=== PATIENT | female | born 1950 | race Caucasian/White ===

== ENCOUNTER → 2016-06-10 | Day surgery (SDC) | payer MEDICARE ==
[~2016-06-10] MED LIST: ACTOS PO; ADVAIR 5001 DISK W/2 IH; AMARYL2 MG PO; AMOXICILLIN500 M1 PO; BENTYL10 MG PO; BIOTIN10000 MCG PO; CINNAMON PO; CLARITIN-D1 TAB 12 H PO; DUONEB; FLONASE16 GM; GLYBURIDE PO; HUMULIN N100 UNIT/1 SUBQ; IRON325 ( 65 ) PO; KLOR-CON PO; LASIX PO; LEVAQUIN PO; LEVOXYL200 MC1 PO; LISINOPRIL2.5 MG PO; METFORMIN HCL1000 M1 PO; NEO/POLYMYXIN/H10 M1 AU; OMEPRAZOLE40 M1 PO; PERCOCET PO; PREDNISONE PO; PRILOSEC20 M1 PO; PROMETHAZINE W118 M1 PO; PROVENTIL INH0.5 ML INH; RED YEAST RICE E1 GM PO; REQUIP1 MG PO; ROBAXIN 750750 MG PO; ROPINIROLE HCL1 MG PO; SINGULAIR PO; TIZANIDINE HCL4 M1 PO; VICTOZA0.6 MG/0.1 SQ; VOLTAREN75 MG PO; XANAX0.5 MG PO
--- NOTE | ~2016-06-10 | OR ---
Unit #: [id number] #: [id number] Patient: TED BINGHAM [id number] [address] [address] [id number] O MR#: [id number] NAME: TED BINGHAM. ROOM: Date of Procedure: 06/10/2016 Admission Date: 06/10/2016 Surgeon: Elton Franco M.D. : 1950 Attending Physician: Elton Franco M.D. Primary Care Physician: Generic Doctor Not In System OPERATIVE REPORT PREOPERATIVE DIAGNOSES Spondylolisthesis, degenerative disk disease, back pain, radiculopathy. POSTOPERATIVE DIAGNOSES Spondylolisthesis degenerative disk disease, back pain, radiculopathy. PROCEDURE PERFORMED Lumbar epidural steroid injection with intravenous sedation and fluoroscopic guidance for needle localization. INDICATIONS FOR PROCEDURE The patient is a 65-year-old female, who had a return of back and bilateral lower extremity pains due to nonsurgical pathology in her lumbar spine. She has done well in the past with epidural steroids. Last injection was completed about a year ago. She had resurgence of those symptoms. Plan is to repeat an injection at this point based on history, pathology, symptomatology, and treatment options. DESCRIPTION OF PROCEDURE The patient was placed in a seated position. Standard monitors were applied. 2 mg of Versed were given for sedation and anxiolysis, which were adequate. Vital signs remained stable. Sterile prep and drape then of lumbar area was performed. The skin at the L4 level was localized with 1% lidocaine. An 18-gauge Hustead needle was then advanced via loss of resistance technique and fluoroscopic guidance in toward the epidural space. After confirming proper positioning with fluoroscopy and radiographic contrast, 80 mg of Depo-Medrol and 4 mL of 0.125% bupivacaine were deposited. The patient tolerated the procedure otherwise well and was discharged to the recovery room in stable condition. Dictated by... Vicky Kent/sp TD: 06/10/2016 23:07 JOB #: [id number] Unit #: [id number] #: [id number] Patient: TED BINGHAM OPERATIVE REPORT Page 1 of 1 X Elton Franco MD X PROCEDURE OPERATIVE NOTE
== END | disposition home or self-care (01) ==
LOC: CCSC 09:19
DX: M51.16 Intervertebral disc disorders with radiculopathy, lumbar region (principal); M43.16 Spondylolisthesis, lumbar region; E11.9 Type 2 diabetes mellitus without complications; J44.9 Chronic obstructive pulmonary disease, unspecified; K21.9 Gastro-esophageal reflux disease without esophagitis; E66.01 Morbid (severe) obesity due to excess calories; M19.90 Unspecified osteoarthritis, unspecified site; F41.9 Anxiety disorder, unspecified
CPT/HCPCS: J1040; J2250

== ENCOUNTER 2016-06-15 22:37 | Emergency (ER) | payer MEDICARE ==
--- NOTE | ~2016-06-15 | CR229 ---
[facility]. [facility] A Service of [facility] & [facility] RADIOLOGY TEXT RESULTS PATIENT: TED BINGHAM LOCATION: SED : 50 UNIT #: [id number] AGE: [address]: Montana Cordero MD SEX: F ORDER DR: [id number] [address] [address] [id number] E MR#: [id number] Acc #: [id number] NAME: TED BINGHAM : 1950 SEX: F STUDY DATE/TIME: 06/15/2016 23:25 UNIT: SED ROOM: STUDY DESCRIPTION: CR Shoulder Min 2 View Lt Attending Physician: Montana Cordero M.D. Ordering Physician: Montana Cordero M.D. Primary Care Physician: Generic Doctor Not In System MEDICAL IMAGING REPORT This report is preliminary unless electronic signature is present. EXAM Left shoulder HISTORY Left shoulder and arm pain x3 months. Pain started 3 months after hand surgery. FINDINGS 3 views of the left shoulder demonstrates calcifications along the posterior aspect the shoulder most likely in the region of the infraspinatus tendon and is concerning for infraspinatus calcific tendinitis or tendinopathy. Minimal degenerative change glenohumeral joint and AC joint. Left thorax unremarkable. IMPRESSION Globular soft tissue calcification posterior aspect of the shoulder most likely within the infraspinatus tendon and is strongly suggestive of infraspinatus calcific tendinopathy. Dictated by... Gilberto Meadows M.D. THIS IS AN ELECTRONICALLY VERIFIED REPORT Gilberto Meadows M.D. at 06/16/2016 10:00 PM Rainer TD: 06/16/2016 09:11 JOB #: [id number] MEDICAL IMAGING REPORT Page 1 of 1
--- NOTE | ~2016-06-15 | CR156 ---
[facility] A Service of [facility] & [facility] RADIOLOGY TEXT RESULTS PATIENT: TED BINGHAM LOCATION: SED : 50 UNIT #: [id number] AGE: [address]: Montana Cordero MD SEX: F ORDER DR: [id number] [address] [address] [id number] E MR#: [id number] Acc #: [id number] NAME: TED BINGHAM : 1950 SEX: F STUDY DATE/TIME: 06/15/2016 23:25 UNIT: SED ROOM: STUDY DESCRIPTION: CR Humerus Min 2 View Lt Attending Physician: Montana Cordero M.D. Ordering Physician: Montana Cordero M.D. Primary Care Physician: Enrico Not Listed MEDICAL IMAGING REPORT This report is preliminary unless electronic signature is present. EXAM Left humerus. HISTORY Left arm and shoulder pain for 3 months. FINDINGS 2 views of the left humerus demonstrate no fracture or dislocation. The visualized elbow joint unremarkable. As previously noted on the shoulder study, there are calcifications about the shoulder most likely representing infraspinatus calcific tendinopathy. Dictated by... Gilberto Meadows M.D. THIS IS AN ELECTRONICALLY VERIFIED REPORT Gilberto Meadows M.D. at 06/16/2016 10:00 PM JADE/rosa TD: 06/16/2016 09:12 JOB #: [id number] MEDICAL IMAGING REPORT Page 1 of 1
== END 2016-06-16 00:27 | disposition home or self-care (01) ==
LOC: SED 22:37
DX: M75.92 Shoulder lesion, unspecified, left shoulder (principal); F41.9 Anxiety disorder, unspecified; E11.9 Type 2 diabetes mellitus without complications; I10 Essential (primary) hypertension; K21.9 Gastro-esophageal reflux disease without esophagitis
CPT/HCPCS: 73030; 73060; 99284